=== PATIENT | male | born 2005 | race Caucasian/White ===

== ENCOUNTER → 2024-08-08 | Outpatient (CLI) | payer BC ==
[~2024-08-08] MED LIST: AUGMENTIN 400 M1 CTB PO; AUGMENTIN ES-6100 ML PO; CLARITIN5 MG/5 ML PO; KENALOG0.1% TP; NKHM; PRELONE5 MG/5 ML PO
[2024-08-09 05:07] LABS: HBsAG SCREEN Negative (Negative); HCV Ab Non Reactive (Non Reactive); HEP B CORE Ab, IgM Negative (Negative)
== END | disposition home or self-care (01) ==
LOC: US 10:00 → LAB 10:27
PROVIDERS: ATTEND Internal Medicine
DX: R16.0 Hepatomegaly, not elsewhere classified (principal); K76.0 Fatty (change of) liver, not elsewhere classified; R74.01 Elevation of levels of liver transaminase levels

== ENCOUNTER 2024-11-01 14:21 | Emergency (ER) | payer BC ==
[~2024-11-01] VITALS: Wt 147.4 kg
[2024-11-01] MEDS ORDERED: PHENTERMINE H37.5 M3 PO (14:32)
[2024-11-01] MEDS ORDERED: TOPIRAMATE25 M3 PO (14:33)
[2024-11-01] MEDS ORDERED: SODIUM CHLORIDE 0.9% 500 ML IV ONE (14:35)
[2024-11-01] MEDS ORDERED: LEVETIRACETAM IN NACL (ISO-OS) 100 ML IV ONE (14:35)
[2024-11-01 14:51] LABS: BASO # 0.1 10*3/uL (0.0-0.1); BASO % 0.5 % (0.0-1.0); EOS # 0.1 10*3/uL (0.0-0.4); EOS % 0.7 % (1.0-4.0); MEAN CELL VOLUME 86.5 fl (80.0-94.0); MEAN CORPUSCULAR HGB 29.2 pg (27.0-31.0); MEAN PLATELET VOLUME 10.5 fl (9.6-12.3); MONO # 0.7 10*3/uL (0.1-1.0); MONO % 6.2 % (3.0-9.0); NEUT # 7.8 10*3/uL (2.3-7.9); NEUT % 71.5 % (47.0-73.0); NUCLEATED RED BLOOD CELL 0.0 % (0.0-0.0); NUCLEATED RED BLOOD CELL 0.0 10*3/uL (0.0-0.0); PLATELET COUNT AUTOMATED 262 10*3/uL (130-400); RED CELL DISTRI WIDTH 11.9 % (0-14.5)
[2024-11-01] MEDS ORDERED: DAILY VALUE1 EACH PO (15:16)
[2024-11-01 15:25] LABS: BUN 12 mg/dl (9-23)
[2024-11-01 15:26] LABS: ETHYL ALCOHOL < 3.0 mg/dl (<3)
[2024-11-01 16:03] LABS: URINE AMPHETAMINES Negative (1000ng/ml); URINE BARBITURATES Negative (200ng/ml); URINE BENZODIAZEPINES Negative (200ng/ml); URINE CANNABINOIDS (THC) Negative (50ng/ml); URINE COCAINE Negative (300ng/ml); URINE METHADONE Negative (300ng/ml); URINE OPIATES Negative (300ng/ml); URINE PHENCYCLIDINE Negative (25ng/ml)
== END 2024-11-01 16:51 | disposition home or self-care (01) ==
LOC: ED 14:21
PROVIDERS: Emergency Medicine
DX: S40.212A Abrasion of left shoulder, initial encounter (principal); R56.9 Unspecified convulsions; R51.9 Headache, unspecified; Z79.899 Other long term (current) drug therapy; W18.39XA Other fall on same level, initial encounter; Y93.89 Activity, other specified; Y92.838 Other recreation area as the place of occurrence of the external cause; Y99.8 Other external cause status